=== PATIENT | male | born 1945 | race Caucasian/White ===

== ENCOUNTER 2024-09-09 17:56 | Emergency (ER) | payer BC, MEDICARE ==
[2024-09-09 19:33] LABS: ALT (SGPT) 13 U/L (Less than 45); AST (SGOT) 27 U/L (11-34); Albumin 3.5 g/dL (3.1-4.5); Alkaline Phosphatase 54 U/L (40-110); Anion Gap 14 mmol/L (10-20); BUN (Urea Nitrogen) 19 mg/dL (8.4-25.7); Bilirubin, Total 0.8 mg/dL (0.3-1.2); Calc. Creatinine Clearance 0 mL/min (70-130); Calcium 8.6 mg/dL (7.8-10.44); Carbon Dioxide 22 mmol/L (23-31); Chloride 105 mmol/L (98-107); Estimated GFR 48; Globulin 2.8 g/dL (2.4-3.5); Glucose 103 mg/dL (83-110); Lipase 13 U/L (8-78); Potassium 3.5 mmol/L (3.5-5.1); Protein, Total 6.3 g/dL (5.8-8.1); Sodium 137 mmol/L (136-145)
[2024-09-09 19:43] LABS: #Basophils Less than 0.03 10x3/uL (0.0-0.2); #Eosinophils 0.03 10x3/uL (0.0-0.5); #Neutrophils 6.02 10x3/uL (1.5-8.4); %Basophils 0.1 % (0.0-2.0); %Eosinophils 0.4 % (0.0-6.0); %Lymphocytes 13.5 % (18.0-47.0); %Monocytes 11.2 % (0.0-10.0); %Neutrophils 74.6 % (40.0-75.0); Hematocrit 41.8 % (38.8-50.0); Hemoglobin 14.3 g/dL (13.5-17.5); Mean Corpuscular HGB CONC 34.2 g/dL (32.0-36.0); Mean Corpuscular Hemoglobin 31.1 pg (27.0-33.0); Mean Corpuscular Volume 90.9 fL (81.2-95.1); Mean Platelet Volume 10.9 fL (7.4-10.4); Platelet Count 207 10x3/uL (150-450); White Blood Cell (WBC) Count 8.07 10x3/uL (3.5-10.5)
[2024-09-09] MEDS ORDERED: Ondansetron PF 4 MG/2 ML Vial ONE (20:02)
[2024-09-09] MEDS ORDERED: Morphine 4 MG/ML VIAL ONE (20:02)
[2024-09-09] MEDS ORDERED: Lidocaine 1% (PF) 30 ML VIAL ONE (20:03)
[2024-09-09 22:04] LABS: Bilirubin Neg (Negative); Blood, Urine 10 (Negative); Clarity Clear (Clear); Glucose, Urine (Dipstick) Normal (Negative); Ketone, Urine 15 mg/dL (Negative); Leukocyte 100 (Negative); Nitrite Negative (Negative); Protein, Urine (Dipstick) 30 mg/dl (Neg-Trace); Urobilinogen Normal mg/dL (Less than 2)
[2024-09-09 22:30] LABS: BF Color Yellow; Body Fluid Source Synovial Fluid
[2024-09-09 23:16] LABS: Bacteria/HPF 1+ HPF (None Seen); CAUTI Indications for Culture Dysuria,urgency,freq; Squamous Epithelial 0-3 HPF (0-3)
[2024-09-09 23:17] LABS: Mucous/LPF 1+ LPF (<2+); Transitional Epithelial 0-3 HPF (None Seen)
[2024-09-09 23:18] LABS: Urine Culture Reflex Yes Yes
[2024-09-10] MEDS ORDERED: cefTRIAXone (ROCEPHIN) 1 GM VIAL ONE (00:24)
[2024-09-10 00:37] LABS: BF Segmented Neutrophils 96 %; Cell Count Non Hematic 2 %; Lymphocytes 2 %
[2024-09-10] MEDS ORDERED: Morphine 4 MG/ML VIAL ONE (01:28)
== END 2024-09-10 05:01 | disposition short-term general hospital (02) ==
LOC: CSHERS 17:56
DX: N39.0 Urinary tract infection, site not specified (principal); M25.462 Effusion, left knee; I10 Essential (primary) hypertension
CPT/HCPCS: 71045; 73564; 80053; 81001; 82945; 83605; 83690; 85025; 86140; 87040; 87070; 87086; 87205; 89051; 89060; J0696; J2270 ×2; J2405; 36415